=== PATIENT | female | born 1980 | race Caucasian/White ===

== ENCOUNTER 2020-08-08 17:39 | Emergency (ER) | payer BC, OTHER ==
[2020-08-08 18:34] LABS: Appearance,Urine Clear (Clear); Bilirubin,Urine Negative (Negative); Blood,Urine Negative (Negative); Color,Urine Light Yellow; Glucose,Urine (UA) Negative (Negative); Ketones,Urine Negative (Negative); Leukocyte Esterase,Urine Negative (Negative); Nitrite,Urine Negative (Negative); Protein,Urine Negative (Negative); Specific Gravity,Urine 1.013 (1.001-1.035); Urobilinogen,Urine <2.0 mg/dL (<2.0)
[2020-08-08] MEDS ORDERED: SODIUM CHLORIDE 0.9% 1,000 ML IV ONE (18:36)
[2020-08-08] MEDS ORDERED: MORPHINE SULFATE 2 MG/ML SYRINGE IVP STA (18:36)
[2020-08-08] MEDS ORDERED: ACETAMINOPHEN TAB 325 MG TAB PO STA (18:36)
[2020-08-08] MEDS ORDERED: PIPERACILLIN-TAZOBACTAM 3.375 GM in SODIUM CHLORIDE 0.9% 100 ML IVPB STA (18:37)
[2020-08-08] MEDS ORDERED: SODIUM CHLORIDE 0.9% 1,000 ML IV SCH (18:45)
[2020-08-08 19:16] LABS: ALT 42 U/L (4-34); AST 61 U/L (14-36); African American GFR (CKD) >90 (>60 ml/min/1.73 sqM); Albumin 4.5 g/dL (3.5-5.0); Alkaline Phosphatase 76 U/L (38-126); Anion Gap 14 mmol/L; Blood Urea Nitrogen 10 mg/dL (7-17); Calcium 9.9 mg/dL (8.4-10.2); Carbon Dioxide 23 mmol/L (22-30); Chloride 97 mmol/L (98-107); Glucose 100 mg/dL (74-99); Non-African American GFR(CKD) 84 (>60 ml/min/1.73 sqM); Potassium 4.1 mmol/L (3.5-5.1); Sodium 134 mmol/L (137-145); Total Bilirubin 0.8 mg/dL (0.2-1.3)
[2020-08-08 19:21] LABS: Basophils # (A) 0.1 k/uL (0-0.2); Basophils % (A) 1 %; Eosinophils # (A) 0.1 k/uL (0-0.7); Eosinophils % (A) 1 %; HCT 40.7 % (34.0-46.0); HGB 13.6 gm/dL (11.4-16.0); Lymphocytes % (A) 9 %; MCH 30.6 pg (25.0-35.0); MCHC 33.3 g/dL (31.0-37.0); MCV 91.7 fL (80.0-100.0); Mean Platelet Volume 7.5; Monocytes # (A) 0.4 k/uL (0-1.0); Monocytes % (A) 4 %; Neutrophils # (A) 8.7 k/uL (1.3-7.7); Neutrophils % (A) 85 %; Platelet Count 213 k/uL (150-450); RBC 4.44 m/uL (3.80-5.40); RDW 12.1 % (11.5-15.5); WBC 10.3 k/uL (3.8-10.6)
--- NOTE | 2020-08-08 19:57 | CT ---
EXAMINATION TYPE: CT abdomen pelvis w con DATE OF EXAM: 08/08/2020 COMPARISON: HISTORY: Umbilical pain and fever. CT DLP: 1174.2 mGycm Automated exposure control for dose reduction was used. CONTRAST: Performed with IV Contrast, patient injected with 100ml mL of Isovue 300. Lung bases are clear. There is no pleural effusion. Heart size is normal. There is no pericardial eff usion. Liver spleen stomach pancreas gallbladder appear normal. Bile ducts are not dilated. There is no adrenal mass. Kidneys have normal size. There is no hydronephrosis. Delayed images show n ormal renal excretion. Ureters are not dilated. There is no retroperitoneal adenopathy. Bladder distends smoothly. Uterus is anteverted. There is no pelvic mass. There are a few sigmoid div erticula. Appendix is posterior and appears normal. There is some mild wall thickening and fat stranding around the mid transverse colon. Lumbar vertebra have normal alignment. Posterior elements are intact. Bony pelvis is intact. Hip join ts are intact. Sacroiliac joints appear normal. There is no ascites or free air. There is no sign of a bowel obstruction. IMPRESSION: Inflammatory changes around the mid transverse colon consistent with colitis or diverticulitis. Mild sigmoid diverticulosis.
[2020-08-08 20:33] VITALS: PULSE 96; RESP 18
--- NOTE | 2020-08-08 20:42 | ED ---
Abdominal Pain HPI - General Chief Complaint: Abdominal Pain Stated Complaint: fever, Abd pain Time Seen by Provider: 08/08/20 18:19 Source: patient Mode of arrival: ambulatory Limitations: no limitations - History of Present Illness Initial Comments: 40-year-old female presenting today for chief complaint of lower abdominal pain chills. Patient states that she has felt unwell today with lower abdominal pain and chills. Patient states that she has no dysuria or urgency frequency but the pain is in the area that feels like above her bladder. She denies upper abdominal pain chest pain shortness of breath or upper respiratory symptoms. Patient denies any vaginal bleeding or concern for sexual transmitted diseases. Patient denies experiencing this in the past remaining review of systems negative upon arrival patient appears well and nontoxic-but is found to be febrile - Related Data Home Medications Medication Instructions Recorded Confirmed Venlafaxine HCl [Effexor XR] 75 mg PO DAILY 06/15/15 06/16/15 Previous Rx's Medication Instructions Recorded Amoxic-Pot Clav 875-125Mg 1 tab PO Q12HR 10 Days #20 tab 08/08/20 [Augmentin 875-125] Allergies Allergy/AdvReac Type Severity Reaction Status Date / Time No Known Allergies Allergy Verified 08/08/20 18:11 Review of Systems ROS Statement: Those systems with pertinent positive or pertinent negative responses have been documented in the HPI. ROS Other: All systems not noted in ROS Statement are negative. Past Medical History Past Medical History: No Reported History History of Any Multi-Drug Resistant Organisms: None Reported Past Surgical History: Uterine Ablation Past Psychological History: Anxiety, Depression Smoking Status: Never smoker Past Alcohol Use History: None Reported Past Drug Use History: None Reported General Exam - General Exam Comments Initial Comments: General: The patient is awake and alert, in no distress Eye: Pupils are equal, round and reactive to light, extra-ocular movements are intact. No nystagmus. There is normal conjunctiva bilaterally. No signs of icterus. Ears, nose, mouth and throat: There are moist mucous membranes and no oral lesions. Neck: The neck is supple, there is no tenderness or JVD. Cardiovascular: There is a regular rate and rhythm. No murmur, rub or gallop is appreciated. Respiratory: Lungs are clear to auscultation, respirations are non-labored, breath sounds are equal. No wheezes, stridor, rales, or rhonchi. Gastrointestinal: Soft, non-distended, mildline lower abdominal pain, no specific RLQ tenderness abdomen without masses or organomegaly noted. There is no rebound or guarding present. Musculoskeletal: Normal ROM, no tenderness. Strength 5/5. Sensation intact. Radial pulses equal bilaterally 2+. Neurological: A&O x 3. CN II-XII intact grossly, There are no obvious motor or sensory deficits. Coordination appears grossly intact. Speech is normal. Skin: Skin is warm and dry and no rashes or lesions are noted. Psychiatric: Cooperative, appropriate mood & affect, normal judgment. Limitations: no limitations Course Vital Signs 08/08/20 08/08/20 08/08/20 18:08 20:25 21:03 Temperature 101.0 F H 98.6 F 98.5 F Pulse Rate 110 H 96 96 Respiratory 20 18 18 Rate Blood Pressure 119/71 102/70 103/61 O2 Sat by Pulse 99 99 98 Oximetry Medical Decision Making - Medical Decision Making No leukocytosis, CT colitis first diverticulitis. Patient does not appear toxic improvement patient's vital signs. Patient given 1 dose of Zosyn patient was given option of outpatient versus inpatient treatment. She states her pain has improved and would like to trial outpatient treatment, discussed case reviewing pt labs/CT with attending Dr. Mi who is agreeable discharge with augmentin and GI f/u. Discussed risks of perforation and importance of close monitoring of pain, patient verbalized understanding and was discharged appearing well. - Lab Data Result diagrams: 08/08/20 18:56 08/08/20 18:56 Lab Results 08/08/20 08/08/20 08/08/20 Range/Units 18:12 18:56 18:56 WBC 10.3 (3.8-10.6) k/uL RBC 4.44 (3.80-5.40) m/uL Hgb 13.6 (11.4-16.0) gm/dL Hct 40.7 (34.0-46.0) % MCV 91.7 (80.0-100.0) fL MCH 30.6 (25.0-35.0) pg MCHC 33.3 (31.0-37.0) g/dL RDW 12.1 (11.5-15.5) % Plt Count 213 (150-450) k/uL MPV 7.5 Neutrophils % 85 % Lymphocytes % 9 % Monocytes % 4 % Eosinophils % 1 % Basophils % 1 % Neutrophils # 8.7 H (1.3-7.7) k/uL Lymphocytes # 1.0 (1.0-4.8) k/uL Monocytes # 0.4 (0-1.0) k/uL Eosinophils # 0.1 (0-0.7) k/uL Basophils # 0.1 (0-0.2) k/uL Sodium 134 L (137-145) mmol/L Potassium 4.1 (3.5-5.1) mmol/L Chloride 97 L (98-107) mmol/L Carbon Dioxide 23 (22-30) mmol/L Anion Gap 14 mmol/L BUN 10 (7-17) mg/dL Creatinine 0.88 (0.52-1.04) mg/dL Est GFR (CKD-EPI)AfAm >90 (>60 ml/min/1.73 sqM) Est GFR (CKD-EPI)NonAf 84 (>60 ml/min/1.73 sqM) Glucose 100 H (74-99) mg/dL Plasma Lactic Acid Jimi (0.7-2.0) mmol/L Calcium 9.9 (8.4-10.2) mg/dL Total Bilirubin 0.8 (0.2-1.3) mg/dL AST 61 H (14-36) U/L ALT 42 H (4-34) U/L Alkaline Phosphatase 76 (38-126) U/L Total Protein 8.0 (6.3-8.2) g/dL Albumin 4.5 (3.5-5.0) g/dL Urine Color Light Yellow Urine Appearance Clear (Clear) Urine pH 8.0 (5.0-8.0) Ur Specific [place] 1.013 (1.001-1.035) Urine Protein Negative (Negative) Urine Glucose (UA) Negative (Negative) Urine Ketones Negative (Negative) Urine Blood Negative (Negative) Urine Nitrite Negative (Negative) Urine Bilirubin Negative (Negative) Urine Urobilinogen <2.0 (<2.0) mg/dL Ur Leukocyte Esterase Negative (Negative) 08/08/20 Range/Units 18:56 WBC (3.8-10.6) k/uL RBC (3.80-5.40) m/uL Hgb (11.4-16.0) gm/dL Hct (34.0-46.0) % MCV (80.0-100.0) fL MCH (25.0-35.0) pg MCHC (31.0-37.0) g/dL RDW (11.5-15.5) % Plt Count (150-450) k/uL MPV Neutrophils % % Lymphocytes % % Monocytes % % Eosinophils % % Basophils % % Neutrophils # (1.3-7.7) k/uL Lymphocytes # (1.0-4.8) k/uL Monocytes # (0-1.0) k/uL Eosinophils # (0-0.7) k/uL Basophils # (0-0.2) k/uL Sodium (137-145) mmol/L Potassium (3.5-5.1) mmol/L Chloride (98-107) mmol/L Carbon Dioxide (22-30) mmol/L Anion Gap mmol/L BUN (7-17) mg/dL Creatinine (0.52-1.04) mg/dL Est GFR (CKD-EPI)AfAm (>60 ml/min/1.73 sqM) Est GFR (CKD-EPI)NonAf (>60 ml/min/1.73 sqM) Glucose (74-99) mg/dL Plasma Lactic Acid Jimi 0.9 (0.7-2.0) mmol/L Calcium (8.4-10.2) mg/dL Total Bilirubin (0.2-1.3) mg/dL AST (14-36) U/L ALT (4-34) U/L Alkaline Phosphatase (38-126) U/L Total Protein (6.3-8.2) g/dL Albumin (3.5-5.0) g/dL Urine Color Urine Appearance (Clear) Urine pH (5.0-8.0) Ur Specific [place] (1.001-1.035) Urine Protein (Negative) Urine Glucose (UA) (Negative) Urine Ketones (Negative) Urine Blood (Negative) Urine Nitrite (Negative) Urine Bilirubin (Negative) Urine Urobilinogen (<2.0) mg/dL Ur Leukocyte Esterase (Negative) Disposition Clinical Impression: Colitis Disposition: HOME SELF-CARE Condition: Good Instructions (If sedation given, give patient instructions): Diverticulitis (ED), Colitis (ED) Additional Instructions: Please use medication as discussed. Please follow-up with family doctor in the next 2 days> please follow-up with GI physician as discussed. Please return to emergency room if the symptoms increase or worsen or for any other concerns. Prescriptions: Amoxic-Pot Clav 875-125Mg [Augmentin 875-125] 1 tab PO Q12HR 10 Days #20 tab Is patient prescribed a controlled substance at d/c from ED?: No Referrals: Casi Siu DO [Primary Care Provider] - 1-2 days Eduin Cruz MD [STAFF PHYSICIAN] - 1-2 days Time of Disposition: 20:41
[2020-08-08 21:05] VITALS: BP 103/61; TEMP 98.5
== END 2020-08-08 21:03 | disposition home or self-care (01) ==
LOC: EC 17:39
DX: K52.9 Noninfective gastroenteritis and colitis, unspecified (principal); F41.9 Anxiety disorder, unspecified; F32.9 Major depressive disorder, single episode, unspecified; Z79.899 Other long term (current) drug therapy
CPT/HCPCS: 36415; 80053; 83605; 85025; 81003; 87040; 74177; 99284; 96374; 96375; 96361 ×2; J2543; J2270; Q9967

== ENCOUNTER 2020-08-11 04:17 | Emergency (ER) | payer BC ==
[2020-08-11 04:28] VITALS: RESP 18; TEMP 98.1
[2020-08-11] MEDS ORDERED: SODIUM CHLORIDE 0.9% 1,000 ML IV STA (05:19)
[2020-08-11] MEDS ORDERED: ONDANSETRON 4 MG/2 ML VIAL IVP STA (05:19)
[2020-08-11] MEDS ORDERED: MORPHINE SULFATE 4 MG/ML SYRINGE IV STA (05:19)
[2020-08-11 05:39] LABS: Basophils % (A) 1 %; Eosinophils # (A) 0.1 k/uL (0-0.7); Eosinophils % (A) 1 %; HCT 37.8 % (34.0-46.0); HGB 12.5 gm/dL (11.4-16.0); Lymphocytes # (A) 1.6 k/uL (1.0-4.8); Lymphocytes % (A) 23 %; MCH 30.3 pg (25.0-35.0); MCV 91.9 fL (80.0-100.0); Mean Platelet Volume 7.6; Monocytes # (A) 0.3 k/uL (0-1.0); Monocytes % (A) 4 %; Neutrophils # (A) 4.9 k/uL (1.3-7.7); Neutrophils % (A) 70 %; Platelet Count 252 k/uL (150-450); RBC 4.12 m/uL (3.80-5.40); RDW 12.5 % (11.5-15.5); WBC 6.9 k/uL (3.8-10.6)
[2020-08-11 05:49] LABS: ALT 64 U/L (4-34); AST 54 U/L (14-36); African American GFR (CKD) >90 (>60 ml/min/1.73 sqM); Albumin 3.6 g/dL (3.5-5.0); Alkaline Phosphatase 88 U/L (38-126); Amylase 42 U/L (30-110); Anion Gap 5 mmol/L; Blood Urea Nitrogen 11 mg/dL (7-17); Carbon Dioxide 24 mmol/L (22-30); Chloride 106 mmol/L (98-107); Glucose 85 mg/dL (74-99); Lipase 37 U/L (23-300); Non-African American GFR(CKD) >90 (>60 ml/min/1.73 sqM); Potassium 3.9 mmol/L (3.5-5.1); Sodium 135 mmol/L (137-145); Total Bilirubin 0.4 mg/dL (0.2-1.3); Total Protein 6.9 g/dL (6.3-8.2)
[2020-08-11 05:54] LABS: Appearance,Urine Clear (Clear); Bilirubin,Urine Negative (Negative); Blood,Urine Small (Negative); Color,Urine Yellow; Glucose,Urine (UA) Negative (Negative); Ketones,Urine 2+ (Negative); Leukocyte Esterase,Urine Negative (Negative); Mucus,Urine Moderate /hpf; Nitrite,Urine Negative (Negative); PH, Urine 5.5 (5.0-8.0); Protein,Urine Negative (Negative); RBC,Urine 12 /hpf (0-5); Specific Gravity,Urine 1.026 (1.001-1.035); Squamous Epithelial Cell,Urine <1 /hpf (0-4); Urobilinogen,Urine <2.0 mg/dL (<2.0); WBC,Urine 1 /hpf (0-5)
[2020-08-11 06:15] LABS: C Reactive Protein 141.3 mg/L (<10.0)
--- NOTE | 2020-08-11 06:28 | ED ---
Abdominal Pain HPI - General Chief Complaint: Abdominal Pain Stated Complaint: Abdominal pain Time Seen by Provider: 08/11/20 04:47 Source: patient Mode of arrival: ambulatory Limitations: no limitations - History of Present Illness Initial Comments: this patient is 40-year-old woman who presents to be evaluated for mainly nausea and vomiting but also She had been seen here 3 days ago for abdominal pain and told that she hadcolitis and/or diverticulitis. The patient had been given prescription for Augmentin to take and had gone home. The patient states that she is not tolerating the Augmentin well. She has a lot of nausea and has had a little bit of vomiting, and as result does not really able take the Augmentin. The patient has not seen any hematemesis. She denies change in bowel movements. No change in urination. MD Complaint: abdominal pain -: days(s) Location: epigastric Radiation: none Migration to: no migration Severity: moderate Quality: cramping, aching Consistency: constant Improves With: nothing Worsens With: nothing Associated Symptoms: nausea, vomiting - Related Data Home Medications Medication Instructions Recorded Confirmed Venlafaxine HCl [Effexor XR] 75 mg PO DAILY 06/15/15 06/16/15 Previous Rx's Medication Instructions Recorded Amoxic-Pot Clav 875-125Mg 1 tab PO Q12HR 10 Days #20 tab 08/08/20 [Augmentin 875-125] Ciprofloxacin HCl [Cipro] 500 mg PO Q12HR #14 tablet 08/11/20 Promethazine [Phenergan] 25 mg PO Q6HR PRN #12 tablet 08/11/20 metroNIDAZOLE [Flagyl] 500 mg PO TID #21 tab 08/11/20 Allergies Allergy/AdvReac Type Severity Reaction Status Date / Time No Known Allergies Allergy Verified 08/08/20 18:11 Review of Systems ROS Statement: Those systems with pertinent positive or pertinent negative responses have been documented in the HPI. ROS Other: All systems not noted in ROS Statement are negative. Constitutional: Denies: fever, chills, weakness Respiratory: Denies: cough, dyspnea Cardiovascular: Denies: chest pain, palpitations, edema Gastrointestinal: Reports: abdominal pain, nausea, vomiting. Denies: diarrhea, constipation, melena, hematochezia Genitourinary: Denies: dysuria, hematuria Musculoskeletal: Denies: back pain Skin: Denies: rash Neurological: Denies: headache, weakness, numbness Past Medical History Past Medical History: No Reported History History of Any Multi-Drug Resistant Organisms: None Reported Past Surgical History: Uterine Ablation Past Psychological History: Anxiety, Depression Smoking Status: Never smoker Past Alcohol Use History: None Reported Past Drug Use History: None Reported General Exam Limitations: no limitations General appearance: alert, in no apparent distress Head exam: Present: atraumatic, normocephalic Eye exam: Present: normal appearance, scleral icterus, conjunctival injection ENT exam: Present: normal oropharynx Neck exam: Present: normal inspection Respiratory exam: Present: normal lung sounds bilaterally. Absent: respiratory distress, wheezes, rales, rhonchi, stridor Cardiovascular Exam: Present: regular rate, normal rhythm, normal heart sounds. Absent: systolic murmur, diastolic murmur, rubs, gallop GI/Abdominal exam: Present: soft, tenderness (mild epigastric tenderness without rebound or guarding), normal bowel sounds. Absent: distended, guarding, rebound, rigid, mass, pulsatile mass, hernia Extremities exam: Present: normal inspection, normal capillary refill. Absent: pedal edema, calf tenderness Back exam: Present: normal inspection. Absent: CVA tenderness (R), CVA tender ness (L) Neurological exam: Present: alert Skin exam: Present: warm, dry, intact, normal color. Absent: rash Course Vital Signs 08/11/20 08/11/20 04:24 05:45 Temperature 98.1 F Pulse Rate 91 81 Respiratory 18 18 Rate Blood Pressure 116/83 119/86 O2 Sat by Pulse 99 96 Oximetry Medical Decision Making - Medical Decision Making reviewed the computed tomography scan and they're deftly does appear to be some transverse colitis and possibly also a little bit of diverticulitis and sigmoid. patient is feeling better following medication. I discussed admitting her to the hospital for further therapy. the patient declines, stating that she just wanted to possibly change the antibiotic .Will prescribe a different antibiotic spectrum and also include medication against nausea and vomiting. He says the patient that she must return if she is not seeing improvement and sent 12 hours, or if there is any worsening, sooner. - Lab Data Result diagrams: 08/11/20 05:30 08/11/20 05:30 Lab Results 08/11/20 08/11/20 08/11/20 Range/Units 05:30 05:30 05:30 WBC 6.9 (3.8-10.6) k/uL RBC 4.12 (3.80-5.40) m/uL Hgb 12.5 (11.4-16.0) gm/dL Hct 37.8 (34.0-46.0) % MCV 91.9 (80.0-100.0) fL MCH 30.3 (25.0-35.0) pg MCHC 33.0 (31.0-37.0) g/dL RDW 12.5 (11.5-15.5) % Plt Count 252 (150-450) k/uL MPV 7.6 Neutrophils % 70 % Lymphocytes % 23 % Monocytes % 4 % Eosinophils % 1 % Basophils % 1 % Neutrophils # 4.9 (1.3-7.7) k/uL Lymphocytes # 1.6 (1.0-4.8) k/uL Monocytes # 0.3 (0-1.0) k/uL Eosinophils # 0.1 (0-0.7) k/uL Basophils # 0.0 (0-0.2) k/uL Sodium 135 L (137-145) mmol/L Potassium 3.9 (3.5-5.1) mmol/L Chloride 106 (98-107) mmol/L Carbon Dioxide 24 (22-30) mmol/L Anion Gap 5 mmol/L BUN 11 (7-17) mg/dL Creatinine 0.73 (0.52-1.04) mg/dL Est GFR (CKD-EPI)AfAm >90 (>60 ml/min/1.73 sqM) Est GFR (CKD-EPI)NonAf >90 (>60 ml/min/1.73 sqM) Glucose 85 (74-99) mg/dL Plasma Lactic Acid Jimi (0.7-2.0) mmol/L Calcium 9.0 (8.4-10.2) mg/dL Total Bilirubin 0.4 (0.2-1.3) mg/dL AST 54 H (14-36) U/L ALT 64 H (4-34) U/L Alkaline Phosphatase 88 (38-126) U/L C-Reactive Protein 141.3 H (<10.0) mg/L Total Protein 6.9 (6.3-8.2) g/dL Albumin 3.6 (3.5-5.0) g/dL Amylase 42 (30-110) U/L Lipase 37 (23-300) U/L Urine Color Yellow Urine Appearance Clear (Clear) Urine pH 5.5 (5.0-8.0) Ur Specific [place] 1.026 (1.001-1.035) Urine Protein Negative (Negative) Urine Glucose (UA) Negative (Negative) Urine Ketones 2+ H (Negative) Urine Blood Small H (Negative) Urine Nitrite Negative (Negative) Urine Bilirubin Negative (Negative) Urine Urobilinogen <2.0 (<2.0) mg/dL Ur Leukocyte Esterase Negative (Negative) Urine RBC 12 H (0-5) /hpf Urine WBC 1 (0-5) /hpf Ur Squamous Epith Cells <1 (0-4) /hpf Urine Mucus Moderate H (None) /hpf Urine HCG, Qual (Not Detectd) 08/11/20 08/11/20 Range/Units 05:30 05:30 WBC (3.8-10.6) k/uL RBC (3.80-5.40) m/uL Hgb (11.4-16.0) gm/dL Hct (34.0-46.0) % MCV (80.0-100.0) fL MCH (25.0-35.0) pg MCHC (31.0-37.0) g/dL RDW (11.5-15.5) % Plt Count (150-450) k/uL MPV Neutrophils % % Lymphocytes % % Monocytes % % Eosinophils % % Basophils % % Neutrophils # (1.3-7.7) k/uL Lymphocytes # (1.0-4.8) k/uL Monocytes # (0-1.0) k/uL Eosinophils # (0-0.7) k/uL Basophils # (0-0.2) k/uL Sodium (137-145) mmol/L Potassium (3.5-5.1) mmol/L Chloride (98-107) mmol/L Carbon Dioxide (22-30) mmol/L Anion Gap mmol/L BUN (7-17) mg/dL Creatinine (0.52-1.04) mg/dL Est GFR (CKD-EPI)AfAm (>60 ml/min/1.73 sqM) Est GFR (CKD-EPI)NonAf (>60 ml/min/1.73 sqM) Glucose (74-99) mg/dL Plasma Lactic Acid Jimi 0.9 (0.7-2.0) mmol/L Calcium (8.4-10.2) mg/dL Total Bilirubin (0.2-1.3) mg/dL AST (14-36) U/L ALT (4-34) U/L Alkaline Phosphatase (38-126) U/L C-Reactive Protein (<10.0) mg/L Total Protein (6.3-8.2) g/dL Albumin (3.5-5.0) g/dL Amylase (30-110) U/L Lipase (23-300) U/L Urine Color Urine Appearance (Clear) Urine pH (5.0-8.0) Ur Specific [place] (1.001-1.035) Urine Protein (Negative) Urine Glucose (UA) (Negative) Urine Ketones (Negative) Urine Blood (Negative) Urine Nitrite (Negative) Urine Bilirubin (Negative) Urine Urobilinogen (<2.0) mg/dL Ur Leukocyte Esterase (Negative) Urine RBC (0-5) /hpf Urine WBC (0-5) /hpf Ur Squamous Epith Cells (0-4) /hpf Urine Mucus (None) /hpf Urine HCG, Qual Not Detected (Not Detectd) Disposition Clinical Impression: Colitis Disposition: HOME SELF-CARE Condition: Fair Prescriptions: Ciprofloxacin HCl [Cipro] 500 mg PO Q12HR #14 tablet metroNIDAZOLE [Flagyl] 500 mg PO TID #21 tab Promethazine [Phenergan] 25 mg PO Q6HR PRN #12 tablet PRN Reason: Vomiting Is patient prescribed a controlled substance at d/c from ED?: No Referrals: Casi Siu DO [Primary Care Provider] - 1-2 days
[2020-08-11 06:52] VITALS: BP 114/79; PULSE 89
== END 2020-08-11 07:11 | disposition home or self-care (01) ==
LOC: EC 04:17
DX: K52.9 Noninfective gastroenteritis and colitis, unspecified (principal); F41.9 Anxiety disorder, unspecified; F32.9 Major depressive disorder, single episode, unspecified; Z79.899 Other long term (current) drug therapy
CPT/HCPCS: 36415; 80053; 82150; 83605; 83690; 85025; 86140; 81001; 81025; 99284; 96374; 96375; 96361; J2270; J2405

== ENCOUNTER 2020-10-23 08:55 | Day surgery (SDC) | payer BC ==
[2020-10-19 11:21] VITALS: BMI 34.0
[~2020-10-23 08:55] MED LIST: LACTATED RINGERS 1,000 ML IV SCH
[2020-10-23 09:13] VITALS: TEMP 97.4
[2020-10-23] MEDS ORDERED: LIDOCAINE 1% (10MG/ML) FOR IV START INTRADERMA ONE (09:13)
[2020-10-23] MEDS ORDERED: LACTATED RINGERS 1,000 ML IV ONE (09:13)
[2020-10-23] MEDS ORDERED: PROPOFOL 10 MG/ML 20 ML VIAL IV ONE (10:19)
[2020-10-23] MEDS ORDERED: MIDAZOLAM 2 MG/2 ML VIAL ONE (10:19)
[2020-10-23] MEDS ORDERED: fentaNYL (PF) 50 MCG/ML 2 ML AMP ONE (10:19)
--- NOTE | 2020-10-23 10:46 | P.PCN ---
Date of Procedure: 10/23/20 Description of Procedure: BRIEF HISTORY: Patient is a 40-year-old female presenting for outpatient colonoscopy for evaluation of noninfective gastroenteritis and colitis. She had been seen in the hospital in 07/2020 with findings of transverse colon inflammation and diverticula with possible colitis versus diverticulitis. She was treated with a course of antibiotic therapy. She is followed up in clinic as scheduled for colonoscopy for evaluation. PROCEDURE PERFORMED: Colonoscopy with biopsy. PREOPERATIVE DIAGNOSIS: Noninfective gastroenteritis and colitis. ESTIMATED BLOOD LOSS: Minimal. IV sedation per Anesthesia. PROCEDURE: After informed consent was obtained, the patient, was brought into the endoscopy unit. IV sedation was administered by Anesthesia under continuous monitoring. Digital rectal examination was normal. Initially the Olympus CF-190 flexible video colonoscope was then inserted in the rectum, gradually advanced into the cecum without any difficulty. Careful examination was performed as the scope was gradually being withdrawn. Ileocecal valve and the appendiceal orifice were visualized and appeared normal. Prep was excellent. Mucosa of the cecum, ascending colon, transverse colon, descending colon, sigmoid colon, and rectum appeared normal, and normal-appearing terminal ileum with random biopsies taken of the terminal ileum, right colon, transverse colon and left colon. A few scattered diverticula noted in the sigmoid colon. Retroflexion was performed in the rectum and no lesions were seen, low-grade internal hemorrhoids. The patient tolerated the procedure well. IMPRESSION: Normal-appearing colon from rectum to cecum and normal-appearing terminal ileum with random biopsies taken of the terminal ileum, right colon, left colon and transverse colon given prior findings of transverse colon colitis. Mild sigmoid diverticulosis. RECOMMENDATIONS: Findings of this examination were discussed with the patient and her family. Okay to resume diet. Okay to resume medications. Await pathology from biopsies. Follow up in GI clinic as scheduled, for results of biopsies and further management.
[2020-10-23 10:51] VITALS: RESP 16
[2020-10-23 11:27] VITALS: BP 117/82; PULSE 74
== END 2020-10-23 11:47 | disposition home or self-care (01) ==
LOC: ORWHC2ENDO 08:55
PROVIDERS: ATTEND Internal Medicine
DX: K52.9 Noninfective gastroenteritis and colitis, unspecified (principal); K57.30 Diverticulosis of large intestine without perforation or abscess without bleeding; K64.8 Other hemorrhoids; Z98.890 Other specified postprocedural states; Z79.899 Other long term (current) drug therapy; Z87.891 Personal history of nicotine dependence
CPT/HCPCS: 81025; 88305; 45380; J2250; J3010; J2704

== ENCOUNTER → 2022-07-02 | Outpatient (CLI) | payer BC ==
--- NOTE | 2022-07-03 19:03 | MM ---
Reason for Exam: Screening (asymptomatic). Baseline mammogram. Patient History: Menarche at age 13. First Full-Term at age 21. Last menstrual period: 06/15/2022 Risk Values: Rhianna 5 year model risk: 0.4%. NCI Lifetime model risk: 8.0%. Prior Study Comparison: Patient's first Mammogram. Tissue Density: The breast tissue is extremely dense which could obscure a lesion on mammography. Findings: Analyzed By CAD. Couple of benign punctate calcifications are present bilaterally. No suspicious groups of microcalcifications, spiculated or lobular masses, architectural distortion or other secondary signs of malignancy are mammographically apparent. Overall Assessment: Benign, BI-RAD 2 Management: Screening Mammogram of both breasts in 1 year. A negative mammogram report should not preclude additional follow up of suspicious palpable abnormalities. Patient should continue monthly self breast exam. A clinical breast exam by your physician is recommended on an annual basis and results should be correlated with mammographic findings. Electronically signed and approved by: Dagoberto Donnelly D.O. Radiologis
== END | disposition home or self-care (01) ==
LOC: RADMAMWWP 07:37
PROVIDERS: ATTEND Family Medicine
DX: Z12.31 Encounter for screening mammogram for malignant neoplasm of breast (principal)
CPT/HCPCS: 77063; 77067

== ENCOUNTER 2023-10-14 13:20 | Emergency (ER) | payer BC ==
[2023-10-14 13:48] VITALS: RESP 18
[2023-10-14] MEDS ORDERED: SODIUM CHLORIDE 0.9% 1,000 ML IV STA ×3 (15:17→16:33)
--- NOTE | 2023-10-14 15:18 | ED ---
Dizziness HPI - General Chief Complaint: Dizziness Stated Complaint: Dizziness,Nausea-Covid + Time Seen by Provider: 10/14/23 15:11 Source: patient, RN notes reviewed, old records reviewed Mode of arrival: ambulatory Limitations: no limitations - History of Present Illness Initial Comments: This is a 43-year-old male to the ER today for evaluation. She presents today for evaluation of dizziness and lightheadedness vomiting weakness and overall not feeling well versus diagnosis of coronavirus. Persistent with increasing fatigue. Patient has no significant medical history takes no medications. MD Complaint: dizziness, lightheadedness, near syncope, difficulty walking -: days(s) Timing: gradual onset Description: "room spinning", lightheadedness History of Same: Yes History of Trauma: Yes Severity: moderate Improves With: nothing Worsens With: nothing Associated Symptoms: denies other symptoms - Related Data Home Medications Medication Instructions Recorded Confirmed Bromfed Dm 5 - 10 ml PO Q4H PRN 10/14/23 10/14/23 Escitalopram [Lexapro] 20 mg PO DAILY 10/14/23 10/14/23 Ibuprofen [Motrin] 800 mg PO Q6H PRN 10/14/23 10/14/23 Nirmatrelvir/Ritonavir [Paxlovid 1 tab PO DIRECTED 10/14/23 10/14/23 2X150 mg-100 mg (Eua)] busPIRone HCL 15 mg PO BID 10/14/23 10/14/23 Allergies Allergy/AdvReac Type Severity Reaction Status Date / Time No Known Allergies Allergy Verified 10/14/23 15:51 Review of Systems ROS Statement: Those systems with pertinent positive or pertinent negative responses have been documented in the HPI. ROS Other: All systems not noted in ROS Statement are negative. Past Medical History Past Medical History: No Reported History Additional Past Medical History / Comment(s): abdominal pain and fever diverticulitis/colitis History of Any Multi-Drug Resistant Organisms: None Reported Past Surgical History: Uterine Ablation Past Anesthesia/Blood Transfusion Reactions: Motion Sickness Past Psychological History: Anxiety, Depression Smoking Status: Never smoker Past Alcohol Use History: None Reported Past Drug Use History: None Reported - Past Family History Mother Family Medical History: No Reported History Father Family Medical History: No Reported History General Exam Limitations: no limitations General appearance: alert, in no apparent distress Head exam: Present: atraumatic, normocephalic, normal inspection Eye exam: Present: normal appearance, PERRL, EOMI. Absent: scleral icterus, conjunctival injection, periorbital swelling ENT exam: Present: normal exam, mucous membranes moist Neck exam: Present: normal inspection. Absent: tenderness, meningismus, lymphadenopathy Respiratory exam: Present: normal lung sounds bilaterally. Absent: respiratory distress, wheezes, rales, rhonchi, stridor Cardiovascular Exam: Present: regular rate, normal rhythm, normal heart sounds. Absent: systolic murmur, diastolic murmur, rubs, gallop, clicks GI/Abdominal exam: Present: soft, normal bowel sounds. Absent: distended, tenderness, guarding, rebound, rigid Extremities exam: Present: normal inspection, full ROM, normal capillary refill. Absent: tenderness, pedal edema, joint swelling, calf tenderness Back exam: Present: normal inspection Neurological exam: Present: alert, oriented X3, CN II-XII intact Psychiatric exam: Present: normal affect, normal mood Skin exam: Present: warm, dry, intact, normal color. Absent: rash Course Vital Signs 10/14/23 10/14/23 10/14/23 13:33 17:38 19:19 Temperature 98.7 F 98.3 F Pulse Rate 109 H 82 78 Respiratory 18 18 18 Rate Blood Pressure 115/75 120/83 128/68 O2 Sat by Pulse 97 100 98 Oximetry - Reevaluation(s) Reevaluation #1: Medical records reviewed Reevaluation #2: Patient symptoms improved Reevaluation #3: Patient informed results questions answered Reevaluation #4: Was pt. sent in by a medical professional or institution (, PA, WHITING MACHINE OPERATOR, urgent care, hospital, or retirement...) When possible be specific @ -no Did you speak to anyone other than the patient for history (EMS, parent, family, police, friend...)? What history was obtained from this source @ -no Did you review nursing and triage notes (agree or disagree)? Why? @ -agree Are old charts reviewed (outside hosp., previous admission, EMS record, old EKG, old radiological studies, urgent care reports/EKG's, retirement records)? Report findings @ -yes Differential Diagnosis (chest pain, altered mental status, abdominal pain women, abdominal pain men, vaginal bleeding, weakness, fever, dyspnea, syncope, headache, dizziness, GI bleed, back pain, seizure, CVA, palpatations, mental health, musculoskeletal)? @ -prior EKG interpreted by me (3pts min.). @ -yes X-rays interpreted by me (1pt min.). @ -no CT interpreted by me (1pt min.). @ -no U/S interpreted by me (1pt. min.). @ -no What testing was considered but not performed or refused? (CT, X-rays, U/S, labs)? Why? @ -none What meds were considered but not given or refused? Why? @ -none Did you discuss the management of the patient with other professionals (professionals i.e. , PA, WHITING MACHINE OPERATOR, lab, RT, psych nurse, oncology social worker, narcotics agent, teacher, ecological technical officer, family preservation caseworker)? Give summary @ -no Was smoking cessation discussed for >3mins.? @ -no Were there social determinants of health that impacted care today? How? (Homeles sness, low income, unemployed, alcoholism, drug addiction, transportation, low edu. Level, literacy, decrease access to med. care, shelter, rehab)? @ -none Was there de-escalation of care discussed even if they declined (Discuss DNR or withdrawal of care, Hospice)? DNR status @ -no What co-morbidities impacted this encounter? (DM, HTN, Smoking, COPD, CAD, Cancer, CVA, ARF, Chemo, Hep., AIDS, mental health diagnosis, sleep apnea, morbid obesity)? @ -none Was patient admitted / discharged? Hospital course, mention meds given and route, prescriptions, significant lab abnormalities, going to OR and other pertinent info. @ - 43 female persistent coronavirus symptoms with a diagnosis of coronavirus. Patient has been given supportive care in the ER feels much improved and can be discharged home Discharge Was critical care preformed (if so, how long)? @ -no Undiagnosed new problem with uncertain prognosis? @ -no Drug Therapy requiring intensive monitoring for toxicity (Heparin, Nitro, Insu harmony, Cardizem)? @ -no Were any procedures done? @ -no Diagnosis/symptom? @ -Coronavirus infection and dizziness Acute, or Chronic, or Acute on Chronic? @ -Acute Uncomplicated (without systemic symptoms) or Complicated (systemic symptoms)? @ -Complicated Side effects of treatment? @ -no Exacerbation, Progression, or Severe Exacerbation? @ -exacerbation Poses a threat to life or bodily function? How? (Chest pain, USA, IL, pneumonia, PE, COPD, DKA, ARF, appy, cholecystitis, CVA, Diverticulitis, Homicidal, Suicidal, threat to staff... and all critical care pts) @ -Yes with comorbidities from coronavirus Reevaluation #5: Differential Weakness: Hypoglycemia, shock, sepsis, hyponatremia, anemia, infection, IL, ETOH, adverse medicine reaction, overdose, stroke, this is not meant to be an all-inclusive list. EKG Findings - EKG Comments: EKG Findings:: EKG is sinus at rate 86 MD 143 QRS 92 QTC 406 - EKG Results: EKG: interpreted by [facility] Medical Decision Making - Medical Decision Making 43 female persistent coronavirus symptoms with a diagnosis of coronavirus. Patient has been given supportive care in the ER feels much improved and can be discharged home - Lab Data Result diagrams: 10/14/23 15:24 10/14/23 15:24 Lab Results 10/14/23 10/14/23 10/14/23 Range/Units 15:24 15:24 15:24 WBC 6.0 (3.8-10.6) k/uL RBC 4.65 (3.80-5.40) m/uL Hgb 14.2 (11.4-16.0) gm/dL Hct 42.6 (34.0-46.0) % MCV 91.6 (80.0-100.0) fL MCH 30.5 (25.0-35.0) pg MCHC 33.3 (31.0-37.0) g/dL RDW 12.4 (11.5-15.5) % Plt Count 177 (150-450) k/uL MPV 8.0 Neutrophils % 83 % Lymphocytes % 10 % Monocytes % 5 % Eosinophils % 0 % Basophils % 0 % Neutrophils # 5.0 (1.3-7.7) k/uL Lymphocytes # 0.6 L (1.0-4.8) k/uL Monocytes # 0.3 (0-1.0) k/uL Eosinophils # 0.0 (0-0.7) k/uL Basophils # 0.0 (0-0.2) k/uL PT 10.7 (10.0-12.5) sec INR 1.0 (<1.2) APTT 27.0 (22.0-30.0) sec Sodium 139 (137-145) mmol/L Potassium 4.4 (3.5-5.1) mmol/L Chloride 106 (98-107) mmol/L Carbon Dioxide 23 (22-30) mmol/L Anion Gap 10 mmol/L BUN 6 L (7-17) mg/dL Creatinine 0.77 (0.52-1.04) mg/dL Est GFR (CKD-EPI)AfAm >90 (>60 ml/min/1.73 sqM) Est GFR (CKD-EPI)NonAf >90 (>60 ml/min/1.73 sqM) Glucose 86 (74-99) mg/dL Plasma Lactic Acid Jimi (0.7-2.0) mmol/L Calcium 9.4 (8.4-10.2) mg/dL Phosphorus 3.5 (2.5-4.5) mg/dL Magnesium 1.7 (1.6-2.3) mg/dL Total Bilirubin 0.3 (0.2-1.3) mg/dL AST 61 H (14-36) U/L ALT 123 H (4-34) U/L Alkaline Phosphatase 105 (38-126) U/L Troponin I (0.000-0.034) ng/mL NT-Pro-B Natriuret Pep 271 pg/mL Total Protein 7.5 (6.3-8.2) g/dL Albumin 4.2 (3.5-5.0) g/dL TSH 2.120 (0.465-4.680) mIU/L 10/14/23 10/14/23 Range/Units 15:24 15:24 WBC (3.8-10.6) k/uL RBC (3.80-5.40) m/uL Hgb (11.4-16.0) gm/dL Hct (34.0-46.0) % MCV (80.0-100.0) fL MCH (25.0-35.0) pg MCHC (31.0-37.0) g/dL RDW (11.5-15.5) % Plt Count (150-450) k/uL MPV Neutrophils % % Lymphocytes % % Monocytes % % Eosinophils % % Basophils % % Neutrophils # (1.3-7.7) k/uL Lymphocytes # (1.0-4.8) k/uL Monocytes # (0-1.0) k/uL Eosinophils # (0-0.7) k/uL Basophils # (0-0.2) k/uL PT (10.0-12.5) sec INR (<1.2) APTT (22.0-30.0) sec Sodium (137-145) mmol/L Potassium (3.5-5.1) mmol/L Chloride (98-107) mmol/L Carbon Dioxide (22-30) mmol/L Anion Gap mmol/L BUN (7-17) mg/dL Creatinine (0.52-1.04) mg/dL Est GFR (CKD-EPI)AfAm (>60 ml/min/1.73 sqM) Est GFR (CKD-EPI)NonAf (>60 ml/min/1.73 sqM) Glucose (74-99) mg/dL Plasma Lactic Acid Jimi 1.0 (0.7-2.0) mmol/L Calcium (8.4-10.2) mg/dL Phosphorus (2.5-4.5) mg/dL Magnesium (1.6-2.3) mg/dL Total Bilirubin (0.2-1.3) mg/dL AST (14-36) U/L ALT (4-34) U/L Alkaline Phosphatase (38-126) U/L Troponin I <0.012 (0.000-0.034) ng/mL NT-Pro-B Natriuret Pep pg/mL Total Protein (6.3-8.2) g/dL Albumin (3.5-5.0) g/dL TSH (0.465-4.680) mIU/L - EKG Data -: EKG Interpreted by Me Disposition Clinical Impression: Dizziness, Coronavirus infection Disposition: HOME SELF-CARE Condition: Good Instructions (If sedation given, give patient instructions): Dizziness (ED) Is patient prescribed a controlled substance at d/c from ED?: No Referrals: Tez Wheatley DO [Primary Care Provider] - 1-2 days Time of Disposition: 18:00
[2023-10-14 15:56] LABS: Basophils % (A) 0 %; Eosinophils % (A) 0 %; HCT 42.6 % (34.0-46.0); HGB 14.2 gm/dL (11.4-16.0); Lymphocytes # (A) 0.6 k/uL (1.0-4.8); Lymphocytes % (A) 10 %; MCH 30.5 pg (25.0-35.0); MCHC 33.3 g/dL (31.0-37.0); MCV 91.6 fL (80.0-100.0); Monocytes # (A) 0.3 k/uL (0-1.0); Monocytes % (A) 5 %; Neutrophils % (A) 83 %; Platelet Count 177 k/uL (150-450); RBC 4.65 m/uL (3.80-5.40); RDW 12.4 % (11.5-15.5)
[2023-10-14 16:10] LABS: ALT 123 U/L (4-34); AST 61 U/L (14-36); African American GFR (CKD) >90 (>60 ml/min/1.73 sqM); Albumin 4.2 g/dL (3.5-5.0); Alkaline Phosphatase 105 U/L (38-126); Anion Gap 10 mmol/L; Blood Urea Nitrogen 6 mg/dL (7-17); Calcium 9.4 mg/dL (8.4-10.2); Carbon Dioxide 23 mmol/L (22-30); Chloride 106 mmol/L (98-107); Glucose 86 mg/dL (74-99); Magnesium 1.7 mg/dL (1.6-2.3); Non-African American GFR(CKD) >90 (>60 ml/min/1.73 sqM); Phosphorus 3.5 mg/dL (2.5-4.5); Potassium 4.4 mmol/L (3.5-5.1); Sodium 139 mmol/L (137-145); Total Bilirubin 0.3 mg/dL (0.2-1.3); Total Protein 7.5 g/dL (6.3-8.2)
[2023-10-14 16:12] LABS: Prothrombin Time 10.7 sec (10.0-12.5)
[2023-10-14 16:19] LABS: NT-Pro-B-Type Natriuretic Pept 271 pg/mL
[2023-10-14] MEDS ORDERED: KETOROLAC 15 MG/ML 1 ML VIAL IVP STA (16:32)
[2023-10-14] MEDS ORDERED: DEXAMETHASONE SOD PHOSPHATE 10 MG/ML 1 ML VIAL IVP STA (16:32)
[2023-10-14] MEDS ORDERED: ONDANSETRON 4 MG/2 ML VIAL IVP STA (16:33)
[2023-10-14] MEDS ORDERED: ONDANSETRON 4 MG ODT STARTER PACK 2 TAB BTL PO STA (17:54)
[2023-10-14] MEDS ORDERED: IBUPROFEN 600 MG STARTER PACK 4 TAB BTL PO STA (17:54)
[2023-10-14 19:40] VITALS: BP 128/68; PULSE 78; TEMP 98.3
== END 2023-10-14 19:22 | disposition home or self-care (01) ==
LOC: EC 13:20
DX: U07.1 COVID-19 (principal); F32.A Depression, unspecified; F41.9 Anxiety disorder, unspecified; Z79.899 Other long term (current) drug therapy
CPT/HCPCS: 36415; 93005; 83880; 80053; 83605; 83735; 84100; 84443; 84484; 85025; 85610; 85730; 99285; 96374; 96375 ×2; 96361 ×3; J1100; J2405; J1885; S0119

== ENCOUNTER → 2024-09-10 | Outpatient (CLI) | payer BC ==
--- NOTE | 2024-09-13 10:55 | MM ---
Reason for Exam: Screening (asymptomatic). Last mammogram was performed 2 year(s) and 2 month(s) ago. Patient History: Menarche at age 13. First Full-Term at age 21. Currently using Hormonal Contraceptives, starting at age 44. Risk Values: Rhianna 5 year model risk: 0.5%. NCI Lifetime model risk: 7.9%. Prior Study Comparison: 07/02/2022 Bilateral MG 3D screening mammo w/cad, [facility]. Tissue Density: The breasts are extremely dense, which lowers the sensitivity of mammography. Findings: Analyzed By CAD. There is no suspicious group of microcalcifications or new suspicious mass in either breast. Overall Assessment: Benign, BI-RAD 2 Management: Screening Mammogram of both breasts in 1 year. . Patient should continue monthly self-breast exams. A clinical breast exam by your physician is recommended on an annual basis. This exam should not preclude additional follow-up of suspicious palpable abnormalities. Note on Rhianna scores and lifetime risk: 1. A Rhianna score greater than 3% is considered moderate risk. If this is the case, consider specialist referral to assess eligibility for a risk reducing agent. 2. If overall lifetime risk for the development of breast cancer is 20% or higher, the patient may qualify for future screening with alternating mammogram and breast MRI. [facility], , 09/13/2024 10:52 AM. Electronically signed and approved by: Wilson Miller M.D. Radiologis
== END | disposition home or self-care (01) ==
LOC: RADMAMWWP 07:16
PROVIDERS: ATTEND Family Medicine
DX: Z12.31 Encounter for screening mammogram for malignant neoplasm of breast (principal)
CPT/HCPCS: 77063; 77067